=== PATIENT | female | born 1960 | race Caucasian/White ===

== ENCOUNTER 2017-08-02 06:13 | Emergency (ER) | payer BC ==
--- NOTE | 2017-08-02 07:32 | EDM.PDOC ---
ED HPI GENERAL MEDICAL PROBLEM - General Chief Complaint: General Stated Complaint: MEDICAL VIA [facility] Time Seen by Provider: 08/02/17 07:08 Source of Information: Reports: Patient, Family, RN Notes Reviewed History Limitations: Reports: No Limitations - History of Present Illness INITIAL COMMENTS - FREE TEXT/NARRATIVE: 57-year-old female presents emergency department today with complaint of syncopal event, she states she was outside sitting on the porch Workup on the ground she's not sure what happened there was no loss of bowel or bladder she was not confused after the event was witnessed by her daughter does not appear to have shaking episodes. At this time she has no complaints Generalized Pain Score (Numeric/FACES): 5 - Related Data Allergies Allergy/AdvReac Type Severity Reaction Status Date / Time No Known Allergies Allergy Verified 08/02/17 06:29 Home Meds: Home Meds NK [No Known Home Meds] 08/02/17 [History] Past Medical History HEENT History: Reports: Impaired Vision Cardiovascular History: Reports: High Cholesterol, Other (See Below) Other Cardiovascular History: angiogram WATERPROOFER History: Reports: , Spontaneous Musculoskeletal History: Reports: Fracture Other Musculoskeletal History: colar bone - Infectious Disease History Infectious Disease History: Reports: Chicken Pox, Mumps - Past Surgical History GI Surgical History: Reports: Appendectomy, Cholecystectomy Social & Family History - Tobacco Use Smoking Status *Q: Current Every Day Smoker Years of Tobacco use: 40 Packs/Tins Daily: 0.5 Used Tobacco, but Quit: No Second Hand Smoke Exposure: Yes - Caffeine Use Caffeine Use: Reports: Coffee, Soda, Tea - Alcohol Use Days Per Week of Alcohol Use: 0 - Recreational Drug Use Recreational Drug Use: No ED ROS GENERAL - Review of Systems Review Of Systems: See Below Constitutional: Reports: No Symptoms HEENT: Reports: No Symptoms Respiratory: Reports: No Symptoms Cardiovascular: Reports: Syncope GI/Abdominal: Reports: No Symptoms : Reports: No Symptoms Musculoskeletal: Reports: No Symptoms Skin: Reports: No Symptoms Neurological: Reports: No Symptoms Psychiatric: Reports: No Symptoms ED EXAM, GENERAL - Physical Exam Exam: See Below Free Text/Narrative:: General: Female, not in any distress, alert and oriented x3 HEENT: head is atraumatic normocephalic, eyes pupils equal round reactive to light, sclera clear no conjunctivitis appreciated, extraocular eye movements intact. Ears tympanic membranes clear and vo landmarks and light reflex are present bilaterally canals are clear. Nose no septal deviation, nares are clear, no blood present. Mouth mucosa is moist and pink no erythema or exudate noted in soft palate, tongue is midline uvula is midline, dentition is intact. Neck: Supple no thyromegaly no tracheal deviation. Nodes: Cervical nodes subclavicular nodes nontender no palpable lymphadenopathy noted. Lungs: clear to auscultation bilaterally with symmetrical respirations, no adventitious noise appreciated. CV: Regular rate and rhythm S1 and S2 appreciated no murmurs rubs or gallops noted. Abdomen: Soft, nontender, no palpable masses or organomegaly appreciated, no distention no guarding bowel sounds are present, [scars ]. Neuro: Cranial nerves II through XII grossly intact, power is 5 out 5 in upper and lower extremities, patellar reflex, biceps reflex +2 can do finger to nose without difficulty no dysdiadochokinesis no difficulty with rapid alternating movements can do [id number] without difficulty Romberg is negative, has adequate gait can do heel to toe, can toe walk and heel walk no cerebellar dysfunction no focal neurologic deficit Skin: Warm and dry, intact Extremities: No lower extremity edema appreciated, Course - Vital Signs Last Recorded V/S: Last Vital Signs Temp 97.7 F 08/02/17 06:36 Pulse 94 08/02/17 06:36 Resp 16 08/02/17 06:36 BP 108/75 08/02/17 06:36 Pulse Ox 95 08/02/17 06:36 - Orders/Labs/Meds Orders: Active Orders 24 hr Category Date Time Status EKG Documentation Completion [RC] ASDIRECTED Care 08/02/17 07:21 Active EKG 12 Lead [EK] Stat Ther 08/02/17 07:21 Ordered Labs: Laboratory Tests 08/02/17 08/02/17 Range/Units 07:43 07:43 WBC 7.0 (4.5-11.0) K/uL RBC 4.75 (3.30-5.50) M/uL Hgb 14.4 (12.0-15.0) g/dL Hct 43.2 (36.0-48.0) % MCV 91 (80-98) fL MCH 30 (27-31) pg MCHC 33 (32-36) % Plt Count 210 (150-400) K/uL Neut % (Auto) 76 H (36-66) % Lymph % (Auto) 12 L (24-44) % [place] % (Auto) 11 H (2-6) % Eos % (Auto) 1 L (2-4) % Baso % (Auto) 0 (0-1) % Sodium 141 (140-148) mmol/L Potassium 4.0 (3.6-5.2) mmol/L Chloride 106 (100-108) mmol/L Carbon Dioxide 24 (21-32) mmol/L Anion Gap 11.1 (5.0-14.0) mmol/L BUN 10 (7-18) mg/dL Creatinine 0.9 (0.6-1.0) mg/dL Est Cr Clr Drug Dosing 53.29 mL/min Estimated GFR (MDRD) > 60 (>60) Glucose 102 (74-106) mg/dL Calcium 8.4 L (8.5-10.1) mg/dL Total Bilirubin 0.7 (0.2-1.0) mg/dL AST 20 (15-37) U/L ALT 23 (12-78) U/L Alkaline Phosphatase 74 (46-116) U/L Total Protein 7.3 (6.4-8.2) g/dL Albumin 3.7 (3.4-5.0) g/dL Globulin 3.6 H (2.3-3.5) g/dL Albumin/Globulin Ratio 1.0 L (1.2-2.2) Departure - Departure Time of Disposition: 08:24 Disposition: Home, Self-Care 01 Condition: Good Clinical Impression: Syncope Qualifiers: Syncope type: vasovagal syncope Qualified Code(s): R55 - Syncope and collapse - Discharge Information Referrals: PCP,None [Primary Care Provider] - Forms: ED Department Discharge Additional Instructions: Please followup with your primary care provider in 3-5 days if not better, please call return to the emergency department with worsening of symptoms. - My Orders Last 24 Hours: My Active Orders 08/02/17 07:21 EKG Documentation Completion [RC] ASDIRECTED EKG 12 Lead [EK] Stat - Assessment/Plan Last 24 Hours: My Active Orders 08/02/17 07:21 EKG Documentation Completion [RC] ASDIRECTED EKG 12 Lead [EK] Stat Plan: Assessment Acuity = acute Site and laterality = syncopal event Etiology = unclear etiology possible vasovagal Manifestations = none Location of injury = Home Lab values = CBC, CMP, EKG all within normal limits Plan I did review lab work EKG results with her she remained asymptomatic in the emergency department she is no complaints at this time other than feeling fatigued, have her follow-up with her primary care physician in 3-5 days for reevaluation if no improvement This note was dictated using [employer] voice recognition software please call with any questions on syntax or bean.
== END 2017-08-02 08:34 | disposition home or self-care (01) ==
LOC: JP.ED 06:13
DX: R55 Syncope and collapse (principal); E78.00 Pure hypercholesterolemia, unspecified; F17.210 Nicotine dependence, cigarettes, uncomplicated
CPT/HCPCS: 36415; 80053; 85025; 93005; 99284-25

== ENCOUNTER → 2017-09-18 | Day surgery (SDC) | payer BC ==
[~2017-09-18] MED LIST: Midazolam 1 MG/ML 2 ML SDV ONE; Propofol 200 MG/20 ML SDV ONE; Sodium Chloride 0.9% 1,000 ML IV SCH; fentaNYL 100 MCG/2 ML SDV ONE
--- NOTE | 2017-09-18 11:05 | OR ---
DATE OF PROCEDURE: 09/18/2017 PROCEDURE: Colonoscopy. FINDINGS: 1. Ascending colon polyp, approximately 5 mm, completely removed using cold biopsy forceps. 2. Polyp-type lesion protruding from the appendix, approximately 90% removed using cold biopsy forceps. 3. Descending colon polyp, approximately 5 mm, completely removed using cold biopsy forceps. 4. Diverticulosis, mild, limited to the sigmoid colon, no other abnormalities noted. PREOPERATIVE DIAGNOSIS: Screening colonoscopy. POSTOPERATIVE DIAGNOSIS: Screening colonoscopy. RISKS: Risks, benefits, alternatives, and limitations including, but not limited to infection, bleeding, and perforation were explained to the patient, who wished to proceed. PROCEDURE IN DETAIL: The patient was placed in left lateral decubitus position. Digital rectal exam was performed without abnormality. The scope was introduced and advanced atraumatically to the ileocecal valve. In the appendix itself, there was a protruding polypoid-type lesion. This was biopsied multiple times using cold biopsy forceps. The scope was brought back through the ascending, transverse, descending colon, and retroflexed. The aforementioned polyps were identified and completely removed, unless described above. The diverticulosis would be described as mild and limited to the sigmoid colon. No active diverticulitis. No colitis. No old or new blood. No abnormalities and retroflexed. The patient tolerated the procedure well. Woo Tom MD /[id number]
== END ==
LOC: JP.SDS 06:24
PROVIDERS: ATTEND Surgery
DX: Z12.11 Encounter for screening for malignant neoplasm of colon (principal); D12.2 Benign neoplasm of ascending colon; D12.0 Benign neoplasm of cecum; K63.5 Polyp of colon; K57.30 Diverticulosis of large intestine without perforation or abscess without bleeding; F17.200 Nicotine dependence, unspecified, uncomplicated
CPT/HCPCS: 45380; 88305; J2250; J2704; J3010; J7040

== ENCOUNTER 2018-05-17 06:56 | Day surgery (SDC) | payer BC ==
[2018-05-17] MEDS ORDERED: Acetaminophen 500 MG Tab PO ONE (07:00)
[2018-05-17] MEDS ORDERED: fentaNYL 250 MCG/5 ML SDV ONE (07:08)
[2018-05-17] MEDS ORDERED: Neostigmine Methylsulfate 1 MG/ML 5 ML Syringe ONE (07:08)
[2018-05-17] MEDS ORDERED: Propofol 200 MG/20 ML SDV ONE (07:08)
[2018-05-17] MEDS ORDERED: Ondansetron 4 MG/2 ML SDV ONE (07:08)
[2018-05-17] MEDS ORDERED: Dexamethasone 4 MG/ML SDV ONE (07:08)
[2018-05-17] MEDS ORDERED: Succinylcholine 200 MG/10 ML MDV ONE (07:08)
[2018-05-17] MEDS ORDERED: Rocuronium 50 MG/5 ML Vial ONE (07:08)
[2018-05-17] MEDS ORDERED: Glycopyrrolate 0.2 MG/ML 5 ML MDV ONE (07:08)
[2018-05-17] MEDS ORDERED: Naloxone 0.4 MG/ML SDV IVPUSH PRN (07:29)
[2018-05-17] MEDS ORDERED: HYDROmorphone/Normal Saline 15 MG/30 ML PCA IV PRN (07:29)
[2018-05-17] MEDS ORDERED: Dextrose 5%-Lactated Ringers 1,000 ML IV SCH (07:30)
[2018-05-17] MEDS ORDERED: cefOXitin 2 GM in Sodium Chloride 0.9% 50 ML IV ONE (08:15)
[2018-05-17] MEDS ORDERED: hydrOXYzine HCl 100 MG/2 ML SDV IM ONE (09:54)
[2018-05-17] MEDS ORDERED: Acetaminophen/HYDROcodone 325-5 MG Tab PO PRN (10:56)
[2018-05-17] MEDS ORDERED: Ondansetron 4 MG/2 ML SDV IVPUSH PRN (11:00)
[2018-05-17] MEDS ORDERED: hydrOXYzine HCl 100 MG/2 ML SDV IM PRN (11:00)
[2018-05-17] MEDS: Dextrose 5%-Lactated Ringers 1,000 ML IV SCH ×2 (11:41→20:17)
[2018-05-17] MEDS: cefOXitin 2 GM in Sodium Chloride 0.9% 50 ML IV SCH ×2 (14:09→21:20)
[2018-05-18] MEDS: cefOXitin 2 GM in Sodium Chloride 0.9% 50 ML IV SCH ×2 (03:20→07:52)
[2018-05-18] MEDS: Dextrose 5%-Lactated Ringers 1,000 ML IV SCH (05:35)
[2018-05-18] MEDS: Acetaminophen/HYDROcodone 325-5 MG Tab PO PRN ×2 (07:53→12:42)
[2018-05-18] MEDS ORDERED: Aspirin 81 MG Tab.EC PO SCH (09:00)
[2018-05-18] MEDS ORDERED: Magnesium Hydroxide 400 MG/5 ML Susp 30 ML Cup PO PRN (10:44)
--- NOTE | 2018-05-21 08:37 | DISCH ---
ADMISSION DIAGNOSES: Cystocele, rectocele, dyslipidemia, tobacco use disorder, and degeneration of lumbar intervertebral disk. DISCHARGE DIAGNOSES: Rectocele and cystocele repair for large rectocele and small cystocele. Date of surgery 05/17/2018. Surgeon, Romulo Zaman MD. HISTORY: Nuvia Gilmore is a 58-year-old female with a rectocele and small cystocele. After preoperative evaluation and discussion of possible risks and possible complications, she wished to proceed with surgical procedure. HOSPITAL COURSE: Nuvia had her surgery on 05/17/2018. She had no operative complications. On postoperative day #1, her activity was good. Pain was well managed. She was urinating without difficulty. Oral intake adequate. Vital signs stable and she was able to be discharged to home. PHYSICAL EXAMINATION: GENERAL: Nuvia Gilmore is a 58-year-old female. VITAL SIGNS: Height is 5 feet 1.5 inches. Weight is 157 pounds. TPR is 96.5, 93, 16, and blood pressure is 131/78. HEENT: Negative. NECK: Supple. HEART: Regular rate and rhythm. LUNGS: Clear. ABDOMEN: Soft and nontender. EXTREMITIES: Without peripheral edema. DISPOSITION: Discharged to home. CONDITION: Stable and improving. FOLLOWUP APPOINTMENT: With Romulo Zaman MD, on 05/30/2018 at 9:00 a.m. HOME MEDICATIONS: 1. Chidester 5/325 mg one every 6 hours p.r.n. pain #40. 2. Colace 100 mg b.i.d. for 1 month. 3. Milk of magnesia 30 mL, take one daily p.r.n. constipation, 2 were sent home with the patient. She is to resume her home medication of: 1. Aspirin 81 mg daily. 2. Pravastatin 40 mg daily. DIET: Usual diet as tolerated. Drink 8 to 10 glasses of water a day. ACTIVITY: No lifting greater than 10 pounds for 6 weeks. Walk at least 6 times daily inside your home. Driving, do not drive while on pain medication. Shower/bathing, may shower. No tub bathing or swimming. DISCHARGE INSTRUCTIONS: Notify provider if any fever, increased pain, swelling, redness, drainage, nausea, or vomiting. SPECIAL INSTRUCTION: Use incentive spirometer 10 times every hour while awake.
--- NOTE | 2018-05-29 13:23 | OR ---
DATE OF PROCEDURE: 05/17/2018 PREOPERATIVE DIAGNOSIS: Rectocele. POSTOPERATIVE DIAGNOSIS: Large rectocele with small cystocele. OPERATIVE PROCEDURE: Combined rectocele and cystocele repair (34440). ANESTHESIA: General. HAND FINISHER: Nathan Arenas MS-3. INDICATIONS FOR PROCEDURE: This is a 58-year-old female presenting recently to the walk-in clinic with more or less an acute presentation of rectocele. Examination in the clinic earlier confirmed a fairly large rectocele. There did not appear to be much in the way of cystocele, although that will be examined more indepth more precisely in the clinic. She is status post previous hysterectomy. The plan is to proceed with rectocele repair and other repairs as indicated based on operative findings. Potential risks including bleeding, infection, recurrence of the problem over time, and possibility of vaginal stenosis and dyspareunia following the procedure were all reviewed, and the patient wishes to proceed DETAILS OF PROCEDURE: The patient was taken to the operating room and placed in a supine position. After general endotracheal anesthesia was induced, she was converted to a lithotomy position and a vulvar and vaginal prep then performed. Retracting sutures on the labia were then placed, and examination confirmed the large rectocele. There appeared to be a smaller cystocele extending somewhat anterior to the urethra, so this would be technically a cystourethrocele. At this point, the patient was not noted to have a significant uterine descent in the upper aspect of the bladder. At this time, with bladder catheterization at the end of the procedure, it was confirmed to be in near-normal if not normal position. At this point, the vaginal mucosa was divided posteriorly up more or less to the level of the cervix, and the vaginal mucosa was then dissected away from the musculature laterally in each direction and then excised. The rectocele repair at the muscular level was accomplished with a series of #1 Vicryl stitches, and the mid vaginal mucosa was then approximated with running 4-0 Vicryl stitch. A relatively minor cystocele repair was then accomplished with division of the vaginal mucosa over the proximal urethra and distal bladder, and a similar dissection lying above was accomplished in a similar closure, although to a much lesser extent. We were potentially being careful not to overly aggressively treat the cystocele to avoid problems with vaginal stenosis. After closure of the cystocele and vaginal mucosa site, bladder catheter was replaced, and this confirmed, with the Wallace catheter being pulled down to the urethrovesical junction, that there was good positioning of that anatomy. A vaginal packing was then placed and the procedure concluded. The patient was taken to the recovery room in satisfactory condition. Romulo Zaman MD /[id number]
== END 2018-05-18 14:00 | disposition home or self-care (01) ==
LOC: JP.SDS 06:56 → JP.MS 09:45 → EDSTATUS 11:45 → JP.SDS 05-18 14:00
PROVIDERS: ATTEND Surgery
DX: N81.10 Cystocele, unspecified (principal); N81.6 Rectocele; E78.5 Hyperlipidemia, unspecified; F17.210 Nicotine dependence, cigarettes, uncomplicated; M51.36 Other intervertebral disc degeneration, lumbar region; Z79.82 Long term (current) use of aspirin; Z79.899 Other long term (current) drug therapy
CPT/HCPCS: 36415; 57260; 80053; 83735; 84100; 85027; 88302; 94762; A9270; J0694; J1100; J1170; J2405; J2704; J2710; J3010; J3410; J3490; J7042; J7050; J0330

== ENCOUNTER 2021-01-07 07:25 | Day surgery (SDC) | payer BC ==
[~2021-01-07 07:25] MED LIST changes: -Sodium Chloride 0.9% 1,000 ML IV SCH
[2021-01-07] MEDS ORDERED: Sodium Chloride 0.9% 1,000 ML IV SCH (08:00)
--- NOTE | 2021-01-07 11:35 | OR ---
DATE OF PROCEDURE: 01/07/2021 SURGEON: Woo Tom MD PROCEDURE: Colonoscopy. FINDINGS: Polypoid type lesion at appendiceal base (biopsied/removed using cold biopsy forceps). COMPLICATIONS: None. RIPENING ROOM HAND: None. ANESTHESIA: MAC. PREOPERATIVE DIAGNOSIS: Screening colonoscopy. POSTOPERATIVE DIAGNOSIS: Screening colonoscopy. RISKS: Risks, benefits, alternatives, and limitations including, but not limited to infection, bleeding, perforation, false positives, false negatives were explained to the patient and she wished to proceed. PROCEDURE IN DETAIL: The patient was placed in left lateral decubitus position. Digital rectal exam was performed without abnormality. Scope was introduced and advanced atraumatically to the ileocecal valve. At the base of the appendix, there was a polypoid type lesion approximately 5 mm in size. This was biopsied/removed using cold biopsy forceps. It was unclear if this extended into the appendix or not or this was just a cecal polypoid. Scope was brought back to the remainder of the colon and retroflexed. No evidence of old or new blood. No masses. No other polyps. No diverticulosis. No colitis. No abnormalities on retroflexion. Greater than 8 minutes was spent removing the scope. The prep was acceptable, approximately 90% of the luminal surface could be seen. Woo Tom MD /[id number]
== END 2021-01-07 10:25 | disposition home or self-care (01) ==
LOC: JP.SDS 07:25
PROVIDERS: ATTEND Surgery
DX: Z12.11 Encounter for screening for malignant neoplasm of colon (principal); K63.5 Polyp of colon; E78.00 Pure hypercholesterolemia, unspecified; J40 Bronchitis, not specified as acute or chronic
CPT/HCPCS: 45380; J2250; J2704; J3010; J7030